=== PATIENT | male | born 1970 ===

== ENCOUNTER → 2023-06-01 13:47 | Outpatient (ROUT) | payer SELFPAY ==
[2023-06-01 13:51] LABS: Urine Drug Scr, Empl Non-NIDA See Separate Report
== END ==
PROVIDERS: Visit Provider Internal Medicine
DX: Z02.1 Encounter for pre-employment examination (principal)
CPT/HCPCS: 81099

== ENCOUNTER → 2023-12-21 15:26 | Outpatient (CLI) | payer OTHER, SELFPAY | PROVIDERS: Referring Provider Internal Medicine; Visit Provider Internal Medicine | DX: Z23 Encounter for immunization (principal) | CPT/HCPCS: 90471; 90656 ==